=== PATIENT | male | born 1940 | race Caucasian/White ===

== ENCOUNTER 2016-09-04 06:10 | Emergency (ER) | payer BC ==
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
[2016-09-04 06:19] VITALS: BP 137/78; PULSE 80; TEMP 97.8; BMI 36.5
[2016-09-04 06:42] LABS: BASOPHIL 1.1 % (0-2.0); EOSINOPHIL 1.8 % (0-4.5); MCHC 30.9 g/dl (32.0-35.9); MEAN CELL VOLUME 64.8 fl (80-96); MEAN PLT VOLUME 9.4 fl (7.5-11.1); NEUTROPHILS 75.1 % (42.8-82.8); PLATELET COUNT 205 K/MM3 (134-434); WHITE BLOOD COUNT 6.8 K/mm3 (4.0-10.0)
[2016-09-04 06:54] LABS: INR 2.9 (0.82-1.09); PROTHROMBIN TIME (PATIENT) 32.6 SEC (9.98-11.88)
[2016-09-04 07:03] LABS: ALBUMIN 3.4 g/dl (3.4-5.0); ANION GAP 7 (8-16); BILIRUBIN,TOTAL 0.4 mg/dL (0.2-1.0); CALCIUM 8.6 mg/dL (8.5-10.1); CO2 27 mmol/L (21-32); GLUCOSE,RANDOM 120 mg/dL (74-106); MAGNESIUM 1.9 mg/dL (1.8-2.4); SGOT/AST 17 U/L (15-37); SGPT/ALT 20 U/L (12-78); TOT PROT 6.9 g/dl (6.4-8.2)
[2016-09-04 07:06] LABS: ALK PHOS 69 U/L (45-117); TROPONIN I < 0.02 ng/ml (0.00-0.05)
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
[2016-09-04 08:22] LABS: HYPOCHROMIA 3+
[2016-09-04 08:23] LABS: MICROCYTOSIS 2+; TARGET CELLS 2+; TEAR DROP CELLS FEW
--- NOTE | 2016-09-04 11:28 | EKG ---
Test Reason : Blood Pressure : / mmHG Vent. Rate : 076 BPM Atrial Rate : 277 BPM P-R Int : 000 ms QRS Dur : 102 ms QT Int : 376 ms P-R-T Axes : 000 -10 000 degrees QTc Int : 423 ms ATRIAL FIBRILLATION ABNORMAL ECG WHEN COMPARED WITH ECG OF 04-MAY-1998 08:21, NO SIGNIFICANT CHANGE WAS FOUND Confirmed by SERJIO ARREDONDO MD ([id number]) on 09/04/2016 11:28:27 AM Referred By: Confirmed By:SERJIO ARREDONDO MD
== END 2016-09-04 08:59 | disposition home or self-care (01) ==
LOC: JER 06:10
DX: R07.89 Other chest pain (principal); X08.8XXA Exposure to other specified smoke, fire and flames, initial encounter; Y93.89 Activity, other specified; Y92.89 Other specified places as the place of occurrence of the external cause; I48.91 Unspecified atrial fibrillation; I10 Essential (primary) hypertension; E78.5 Hyperlipidemia, unspecified; Z85.038 Personal history of other malignant neoplasm of large intestine; Z87.891 Personal history of nicotine dependence
CPT/HCPCS: 36415; 71010-TC; 80053; 82550; 83735; 84484; 85025; 85610; 93005; 93010; 99283-25

== ENCOUNTER 2016-11-15 05:15 | Day surgery (SDC) | payer BC ==
[2016-11-15] MEDS ORDERED: ETOMIDATE 20 MG/10 ML AMPUL IVPUSH ONE (10:57)
[2016-11-15] MEDS ORDERED: PROPOFOL 20 ML ONE ×2 (10:57)
[2016-11-15 11:18] VITALS: BMI 37.3
[2016-11-15 11:31] VITALS: TEMP 97.4
[2016-11-15 14:26] VITALS: BP 116/71; PULSE 63
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
== END 2016-11-15 13:15 | disposition home or self-care (01) ==
LOC: JASU-ENDO 05:15
PROVIDERS: ATTEND Internal Medicine Gastroenterology
PROC: 0DBN8ZX Excision of Sigmoid Colon, Via Natural or Artificial Opening Endoscopic, Diagnostic (ICD-10-PCS; 2016-11-15)
PROC: 0DB68ZX Excision of Stomach, Via Natural or Artificial Opening Endoscopic, Diagnostic (ICD-10-PCS; 2016-11-15)
PROC: 0DBH8ZX Excision of Cecum, Via Natural or Artificial Opening Endoscopic, Diagnostic (ICD-10-PCS; principal; 2016-11-15 11:00)
DX: Z12.11 Encounter for screening for malignant neoplasm of colon (principal); Z85.038 Personal history of other malignant neoplasm of large intestine; Z83.71 Family history of colonic polyps; D12.0 Benign neoplasm of cecum; K57.30 Diverticulosis of large intestine without perforation or abscess without bleeding; K64.8 Other hemorrhoids; Z98.0 Intestinal bypass and anastomosis status; K25.9 Gastric ulcer, unspecified as acute or chronic, without hemorrhage or perforation; K44.9 Diaphragmatic hernia without obstruction or gangrene; K31.89 Other diseases of stomach and duodenum; D64.9 Anemia, unspecified; K92.1 Melena
CPT/HCPCS: 88305-TC; 88342-TC

== ENCOUNTER 2020-07-23 11:45 | Emergency (ER) | payer BC | END 2020-07-23 12:18 | disposition home or self-care (01) | LOC: JVIRT 11:45 | DX: U07.1 COVID-19 (principal) | CPT/HCPCS: C9803; G2012-GT; U0003 ==

== ENCOUNTER 2023-08-23 13:17 | Emergency (ER) | payer BC ==
[2023-08-23 13:45] VITALS: BP 150/96; PULSE 75; RESP 18; TEMP 98.5; BMI 33.0
[2023-08-23] MEDS: BENZONATATE 200 MG CAPSULE PO ONE (15:31)
[2023-08-23 16:08] LABS: THROAT:GRP A STREP NOT DETECTED (NOTDETECTED)
== END 2023-08-23 15:51 | disposition home or self-care (01) ==
LOC: FER 13:17
DX: R05.9 Cough, unspecified (principal); Z20.822 Contact with and (suspected) exposure to COVID-19
CPT/HCPCS: 0241U-QW; 71046-TC-FY; 87651; 99284-25

== ENCOUNTER 2023-09-28 23:13 | Emergency (ER) | payer BC ==
[2023-09-28 23:19] VITALS: RESP 18; BMI 30.8
[2023-09-28] MEDS ORDERED: ATROPINE SULFATE 1 MG/10 ML DISP.SYRIN ONE (23:42)
[2023-09-28 23:54] LABS: BASO % 0.8 % (0-2.0); HEMOGLOBIN 10.5 GM/dL (11.7-16.9); LYMPH % 14.6 % (8-40); MCHC 31.8 g/dl (32.0-35.9); MEAN PLT VOLUME 8.6 fl (7.5-11.1); MONO % 7.9 % (3.8-10.2); NEUT % 74.7 % (42.8-82.8); PLATELET COUNT 137 10^3/uL (134-434); RBC 5.24 M/mm3 (4.00-5.60); RDW 16.4 % (11.9-15.9); WHITE BLOOD COUNT 7.3 K/mm3 (4.0-10.0)
[2023-09-28] MEDS ORDERED: GLUCAGON 1 MG KIT ONE (23:54)
[2023-09-29 00:03] LABS: POTASSIUM 5.4 mmol/L (3.5-5.1)
[2023-09-29 00:05] LABS: CALCIUM 9.2 mg/dL (8.5-10.1)
[2023-09-29 00:06] LABS: ALBUMIN 3.5 g/dl (3.4-5.0); BLOOD UREA NITROGEN 17.1 mg/dL (7-18)
[2023-09-29 00:09] LABS: CREATININE 0.9 mg/dL (0.55-1.3)
[2023-09-29 00:10] LABS: BILIRUBIN,TOTAL 1.2 mg/dL (0.2-1); TOT PROT 7.1 g/dl (6.4-8.2)
[2023-09-29] MEDS: ATROPINE SULFATE 1 MG/10 ML DISP.SYRIN IVPUSH ONE (00:12)
[2023-09-29] MEDS ORDERED: CALCIUM CHLORIDE 1 GM/10 ML *DISP.SYRIN ONE (00:13)
[2023-09-29] MEDS: GLUCAGON 1 MG KIT IVPUSH ONE (00:17)
[2023-09-29] MEDS: CALCIUM GLUCONATE 10% - 1,000 MG/10 ML VIAL IVPUSH ONE (00:17)
[2023-09-29 00:21] VITALS: BP 130/76; PULSE 89; TEMP 98
== END 2023-09-29 00:40 | disposition short-term general hospital (02) ==
LOC: JER 23:13
PROC: 3E033GC Introduction of Other Therapeutic Substance into Peripheral Vein, Percutaneous Approach (ICD-10-PCS; principal; 2023-09-28)
PROC: 3E033GC Introduction of Other Therapeutic Substance into Peripheral Vein, Percutaneous Approach (ICD-10-PCS; 2023-09-28)
DX: R42 Dizziness and giddiness (principal); R55 Syncope and collapse; R00.1 Bradycardia, unspecified; Z95.4 Presence of other heart-valve replacement
CPT/HCPCS: 36415; 80053; 84484; 85025; 85610; 85730; 86850; 86900; 86901; 93005; 93010; 99285-25